=== PATIENT | male | born 1990 | race Caucasian/White ===

== ENCOUNTER 2017-10-01 23:32 | Emergency (ER) | payer OTHER ==
[2017-10-02] MEDS: HYDROCODONE/APAP (5/325) TAB PO (02:33)
== END 2017-10-02 03:38 | disposition home or self-care (01) ==
LOC: FTE 23:32
DX: S16.1XXA Strain of muscle, fascia and tendon at neck level, initial encounter (principal); S00.83XA Contusion of other part of head, initial encounter; S63.91XA Sprain of unspecified part of right wrist and hand, initial encounter; S50.11XA Contusion of right forearm, initial encounter; S40.011A Contusion of right shoulder, initial encounter; F17.210 Nicotine dependence, cigarettes, uncomplicated; V49.40XA Driver injured in collision with unspecified motor vehicles in traffic accident, initial encounter
CPT/HCPCS: 29125; 70160; 72040; 73030; 73090-RT; 73130-RT; 99284-25

== ENCOUNTER 2018-09-12 02:24 | Emergency (ER) | payer OTHER ==
[2018-09-12] MEDS: AMOXICILLIN/CLAV 875 MG TAB PO (03:53)
[2018-09-12] MEDS: ACETAMINOPHEN 325 MG TAB PO (03:53)
[2018-09-12] MEDS: DIPHTH/TET/ACEL PERTUSS (ADULT) 0.5 ML VIAL IM* (03:54)
[2018-09-12] MEDS: LIDOCAINE 1% (MPF) 5 ML VIAL INFIL (04:00)
== END 2018-09-12 05:20 | disposition home or self-care (01) ==
LOC: FTE 02:24
DX: S01.21XA Laceration without foreign body of nose, initial encounter (principal); W54.0XXA Bitten by dog, initial encounter; Y92.9 Unspecified place or not applicable; Z23 Encounter for immunization
CPT/HCPCS: 12013; 70160; 90471; 90715; 99283-25

== ENCOUNTER 2018-09-22 13:46 | Emergency (ER) | payer OTHER | END 2018-09-22 16:28 | disposition home or self-care (01) | LOC: FTE 13:46 | DX: Z48.01 Encounter for change or removal of surgical wound dressing (principal) | CPT/HCPCS: 99281; Z7502 ==

== ENCOUNTER 2018-09-23 14:38 | Emergency (ER) | payer OTHER | END 2018-09-23 16:32 | disposition home or self-care (01) | LOC: FTE 14:38 | DX: Z48.02 Encounter for removal of sutures (principal) | CPT/HCPCS: 99281; Z7502 ==

== ENCOUNTER 2019-03-01 15:26 | Emergency (ER) | payer OTHER ==
[2019-03-01] MEDS: KETOROLAC 60 MG INJ IM (16:20)
[2019-03-01] MEDS: DEXAMETHASONE 10 MG/ML 1 ML INJ IM (16:20)
== END 2019-03-01 17:29 | disposition home or self-care (01) ==
LOC: FTE 15:26
DX: S16.1XXA Strain of muscle, fascia and tendon at neck level, initial encounter (principal); X58.XXXA Exposure to other specified factors, initial encounter; Y92.9 Unspecified place or not applicable
CPT/HCPCS: 72040; 96372; 99284-25